=== PATIENT | female | born 1935 ===

== ENCOUNTER 2023-04-22 15:39 | Emergency (ER) | payer OTHER, SELFPAY ==
--- NOTE | 2023-04-22 15:45 | DI.RAD.S_ITS ---
PROCEDURE: XR CHEST 1V INDICATIONS: chest pain TECHNIQUE: One view of the chest was acquired. COMPARISON: None. FINDINGS: Surgical changes and devices: None. Lungs and pleura: Lungs are clear. No pleural effusions or pneumothorax. Mediastinum: Mediastinal contours appear normal. Heart size is normal. Bones and chest wall: No suspicious bony lesions. Overlying soft tissues appear unremarkable. IMPRESSION: No acute cardiopulmonary abnormality. Approved by: Naga Banks M.D. on 04/22/2023 at 16:35
[2023-04-22 15:48] VITALS: BP 157/68; PULSE 80; RESP 20; TEMP 36.6; O2SAT 100; BMI 22.4
[2023-04-22 16:19] LABS: D Dimer 1026 ng/ml (<500)
[2023-04-22 16:22] LABS: Alanine Aminotransferase 31 IU/L (<35); Albumin Globulin Ratio 1.3 (1.0-2.8); Alkaline Phosphatase 98 U/L (38-126); Aspartate Aminotransferase 33 IU/L (14-36); Bilirubin Total 0.6 mg/dL (0.2-1.3); Blood Urea Nitrogen 25 mg/dL (7-17); Calcium 9.3 mg/dL (8.4-10.2); Carbon Dioxide 26 mmol/L (22-32); Chloride 105 mmol/L (98-107); Creatine Kinase 38 U/L (30-135); Estimated Glomerular Filt Rate 42 mL/min (>60); Glucose 108 mg/dL (80-110); HEMOLYSIS < 15 (0-50); Lipase 222 U/L (23-300); Sodium 137 mmol/L (137-145)
--- NOTE | 2023-04-22 16:22 | DI.CT.S_ITS ---
PROCEDURE: CT ANGIO CHEST PE PROTOCOL INDICATIONS: R sided chest pain, pleuritic, SOB, travel, critical Dimer TECHNIQUE: After the administration of intravenous contrast, 2 mm thick sections acquired from the pulmonary apices to the posterior costophrenic angles. 3-dimensional maximum intensity projection (MIP) coronal and sagittal reformats were then acquired through the thorax. For radiation dose reduction, the following was used: automated exposure control, adjustment of mA and/or kV according to patient size. COMPARISON: None. FINDINGS: Image quality: Excellent. Pulmonary arteries: Pulmonary arteries are normal in size, and demonstrate no intraluminal filling defects to suggest central pulmonary embolism. Lungs and pleura: Lungs are clear. No pleural effusions or pneumothorax. Central and peripheral airways are patent. Mediastinum: Heart size is normal, without pericardial effusion. No mediastinal or hilar adenopathy. Thoracic aorta is normal in caliber and enhancement. Esophagus is normal in caliber, without hiatal hernia. Bones and chest wall: No suspicious bony lesions. Ribs and thoracic spine appear intact throughout. Thyroid gland is unremarkable. No axillary or supraclavicular adenopathy. Abdomen: Multiple low-attenuation foci within the spleen the largest measuring 9.2 cm. Hounsfield units are less than 20. Visualized upper abdominal solid organs appear normal in the early arterial phase of enhancement. IMPRESSION: No pulmonary embolism. Lungs are clear. Multiple simple hepatic cysts. Dictated by: Tonya Thompson M.D. on 04/22/2023 at 16:50 Approved by: Tonya Thompson M.D. on 04/22/2023 at 16:53
[2023-04-22 16:33] LABS: NT-proBNP (BNP-Adult 18+) 259 pg/mL (<450); Troponin I < 0.012 ng/mL (0.01-0.034)
[2023-04-22 16:39] LABS: Add Manual Diff / Slide Review NO; Basophils Absolute Auto 100 /uL (0-100); Basophils Percent Auto 1.2 % (0-2); Eosinophils Absolute Auto 400 /uL (0-450); Eosinophils Percent Auto 5.2 % (2-4); Hematocrit 34.6 % (36-46); Hemoglobin 11.9 g/dL (12.0-16.0); Lymphocytes Absolute Auto 1500 /uL (1100-4500); Lymphocytes Percent Auto 22.2 % (25-40); Mean Corpuscular HGB Conc 34.3 % (30-36); Mean Corpuscular Hemoglobin 28.8 PG (26-34); Monocytes Absolute Auto 800 /uL (0-900); Monocytes Percent Auto 12.1 % (3-14); Neutrophils Absolute Auto 4100 /uL (1500-7000); Neutrophils Percent Auto 59.3 % (50-75); Platelet Count 164 X10^3/uL (150-400); Red Blood Cell Count 4.12 X10^6/uL (4.0-5.2); Red Cell Distribution Width 14.2 % (11.6-14.8); White Blood Cell Count 6.8 X10^3/uL (4.5-11.0)
[2023-04-22] MEDS: ASPIRIN 81 MG CHEW TAB 324 MG PO (16:56)
[2023-04-22] MEDS: SODIUM CHLORIDE 0.9% 1,000 ML 150 ML IV (16:56)
--- NOTE | 2023-04-22 17:11 | PC.NURSE ---
patient states right sided chest/breast pain that if she is at rest does not feel pain, if she presses on the spot the pain returns. Denies nausea now.
[2023-04-22 17:12] VITALS: BP 151/67; PULSE 79; RESP 18; O2SAT 100
--- NOTE | 2023-04-22 17:13 | PC.NURSE ---
patient able to ambulate to the bathroom and back to bed. She states she does not feel dizzy with movement any more, and feels better overall. Denies chest pain at rest, but has reproducable chest pain on right upper chest/breast when palptated by patient.
[2023-04-22 18:09] VITALS: BP 162/86; PULSE 78; RESP 20; O2SAT 100
--- NOTE | 2023-04-22 18:19 | ED.CHESTPAIN ---
HPI - Chest Pain General Chief Complaint: Chest Pain Stated Complaint: Chest Pain/+Orthostatic Time Seen by Provider: 04/22/23 15:45 Source: patient Mode of arrival: EMS Limitations: no limitations History of Present Illness HPI narrative: 87-year-old female nonsmoker with history of stroke with no residual symptoms presents by EMS for evaluation of the evolution of a sharp and stabbing right-sided chest pain over the course of the day. She states this pain is worse with motion, deep breaths and with palpation as well as use of her right arm. She states that she has some lightheadedness and upon arrival EMS found her to be symptomatically orthostatic. She had an episode or 2 of nausea and vomiting earlier today but feels much better now. She denies any shortness of breath or cough. She denies any significant fatigue or weakness. She denies any change in medications or diet. She denies exertional symptoms or exercise intolerance. Review of Systems Review of Systems Narrative: GENERAL: See HPI HEENT: Denies sinus pain, ear pain, sore throat, difficulty swallowing, dizziness. RESPIRATORY: Denies dyspnea, cough, wheezing, hemoptysis, sputum. CARDIOVASCULAR: See HPI GASTROINTESTINAL: See HPI : Denies dysuria, frequency, incontinence, hematuria, urinary retention. MUSCULOSKELETAL: denies weakness, joint pain, or bony pain SKIN: Denies rash, skin lesions, or other NEUROLOGIC: See HPI PSYCHIATRIC: No concerning psychosocial issues. 12 point review of systems is negative except for those stated above Patient History Social History Smoking Status: Never smoker Smoking Status: Never smoker alcohol intake frequency: holidays/special occasions only Substance Use Type: does not use Exam Narrative Exam Narrative: GENERAL: [87] year old patient appears stated age. Well-developed patient, in mild distress. GCS 15 HEAD: Atraumatic. Normocephalic. EYES: Pupils equal round and reactive. Extraocular motions intact. No scleral icterus. No injection or drainage. ENT: Nose without bleeding, purulent drainage. Throat without erythema, tonsillar hypertrophy or exudate. Airway patent. NECK: Trachea midline. Non tender CARDIOVASCULAR: Regular rate and rhythm without murmurs, gallops, or rubs. Right-sided chest pain reproducible on palpation, she confirms that this is the same pain that was bothering her RESPIRATORY: Clear to auscultation. Breath sounds equal bilaterally. No wheezes, rales, or rhonchi. GASTROINTESTINAL: Abdomen soft, non-tender, nondistended. EXTREMITIES: No edema or joint tenderness. BACK: Nontender without deformity or crepitance. No flank tenderness. NEURO: AOx3. SKIN: No rash or erythema of visible areas Initial Vital Signs Initial Vital Signs: Vital Signs Temperature 97.9 F 04/22/23 15:48 Pulse Rate 80 04/22/23 15:48 Respiratory Rate 20 04/22/23 15:48 Blood Pressure 157/68 H 04/22/23 15:48 Pulse Oximetry 100 04/22/23 15:48 Oxygen Delivery Method Room Air 04/22/23 15:48 Course Orders Ordered: Discontinued Medications Aspirin (Aspirin 81 Mg Chew Tab) 324 mg PO NOW ONE Stop: 04/22/23 15:46 Last Admin: 04/22/23 16:56 Dose: 243 mg Documented By: SPF Sodium Chloride (Normal Saline 0.9%) 1,000 mls @ 150 mls/hr IV CONT TANIA Last Admin: 04/22/23 16:56 Dose: 150 mls/hr Documented By: SPF Reevaluation(s) Reevaluation #1: Patient no longer feeling dizzy, feels significant improvement after fluids Vital Signs Vital signs: Vital Signs - 8 hr 04/22/23 15:48 04/22/23 17:12 04/22/23 18:09 Temperature 97.9 F Pulse Rate 80 79 78 Respiratory Rate 20 18 20 Blood Pressure 157/68 H 151/67 H 162/86 H Pulse Oximetry 100 100 100 Oxygen Delivery Method Room Air Room Air MDM - Chest Pain Lab Data 04/22/23 16:06 04/22/23 18:55 Labs: Lab Results 04/22/23 04/22/23 04/22/23 Range/Units 16:06 16:06 16:06 WBC 6.8 (4.5-11.0) X10^3/uL RBC 4.12 (4.0-5.2) X10^6/uL Hgb 11.9 L (12.0-16.0) g/dL Hct 34.6 L (36-46) % MCV 84.0 (80-100) fL MCH 28.8 (26-34) PG MCHC 34.3 (30-36) % RDW 14.2 (11.6-14.8) % Plt Count 164 (150-400) X10^3/uL Neut % (Auto) 59.3 (50-75) % Lymph % (Auto) 22.2 L (25-40) % [place] % (Auto) 12.1 (3-14) % Eos % (Auto) 5.2 H (2-4) % Baso % (Auto) 1.2 (0-2) % Neut # (Auto) 4100 (9338-4865) /uL Lymph # (Auto) 1500 (5487-6912) /uL [place] # (Auto) 800 (0-900) /uL Eos # (Auto) 400 (0-450) /uL Baso # (Auto) 100 (0-100) /uL D-Dimer 1026 H (<500) ng/ml Sodium 137 (137-145) mmol/L Potassium 4.0 (3.4-5.1) mmol/L Chloride 105 (98-107) mmol/L Carbon Dioxide 26 (22-32) mmol/L BUN 25 H (7-17) mg/dL Creatinine 1.25 H (0.52-1.04) mg/dL Estimated GFR 42 L (>60) mL/min BUN/Creatinine Ratio 20.0 (6-22) Glucose 108 (80-110) mg/dL Calcium 9.3 (8.4-10.2) mg/dL Total Bilirubin 0.6 (0.2-1.3) mg/dL AST 33 (14-36) IU/L ALT 31 (<35) IU/L Alkaline Phosphatase 98 (38-126) U/L Total Creatine Kinase 38 (30-135) U/L Troponin I < 0.012 (0.01-0.034) ng/mL NT-Pro-B Natriuret Pep 259 (<450) pg/mL Total Protein 7.0 (6.3-8.2) g/dL Albumin 4.0 (3.5-5.0) g/dL Globulin 3.0 (1.7-4.1) g/dL Albumin/Globulin Ratio 1.3 (1.0-2.8) Lipase 222 (23-300) U/L 04/22/23 Range/Units 18:55 WBC (4.5-11.0) X10^3/uL RBC (4.0-5.2) X10^6/uL Hgb (12.0-16.0) g/dL Hct (36-46) % MCV (80-100) fL MCH (26-34) PG MCHC (30-36) % RDW (11.6-14.8) % Plt Count (150-400) X10^3/uL Neut % (Auto) (50-75) % Lymph % (Auto) (25-40) % [place] % (Auto) (3-14) % Eos % (Auto) (2-4) % Baso % (Auto) (0-2) % Neut # (Auto) (0522-2130) /uL Lymph # (Auto) (7959-5810) /uL [place] # (Auto) (0-900) /uL Eos # (Auto) (0-450) /uL Baso # (Auto) (0-100) /uL D-Dimer (<500) ng/ml Sodium 140 (137-145) mmol/L Potassium 4.2 (3.4-5.1) mmol/L Chloride 108 H (98-107) mmol/L Carbon Dioxide 25 (22-32) mmol/L BUN 22 H (7-17) mg/dL Creatinine 1.14 H (0.52-1.04) mg/dL Estimated GFR 47 L (>60) mL/min BUN/Creatinine Ratio 19.3 (6-22) Glucose 125 H (80-110) mg/dL Calcium 8.6 (8.4-10.2) mg/dL Total Bilirubin (0.2-1.3) mg/dL AST (14-36) IU/L ALT (<35) IU/L Alkaline Phosphatase (38-126) U/L Total Creatine Kinase 29 L (30-135) U/L Troponin I < 0.012 (0.01-0.034) ng/mL NT-Pro-B Natriuret Pep (<450) pg/mL Total Protein (6.3-8.2) g/dL Albumin (3.5-5.0) g/dL Globulin (1.7-4.1) g/dL Albumin/Globulin Ratio (1.0-2.8) Lipase (23-300) U/L Urine Dip Bedside Urine Glucose Negative Bedside Urine Bilirubin - Negative Bedside Urine Ketone - Negative Urine Specific [place] 1.010 Bedside Urine Occult Blood + Bedside Urine pH 6.5 Bedside Urine Protein - Negative Bedside Urine Urobilinogen - Negative Bedside Urine Nitrite - Negative Bedside Urine Leukocytes - Negative Esterase MDM Narrative Medical decision making narrative: CC: 87-year-old female with right-sided chest pain Complicating co-morbidities: Each, prior stroke Data collected from: Patient Medical records reviewed: Prior notes reviewed in our EMR Differential considered, but not limited to: cardiac ischemia versus pulmonary embolism versus musculoskeletal versus inflammatory change versus much less likely stroke versus other Exam documented above, pertinent findings include: Reproducible right-sided chest pain, heart rate regular, lungs clear, no focal neuro findings Lab Test results independently reviewed as above. Pertinent findings: No leukocytosis or left shift, no anemia, platelets 1 6 4, DDimer 1026, primary electrolytes within normal limits, creatinine 1.25, troponin less than 0.012 Independently reviewed EKG as above Imaging studies independently reviewed: Chest x-ray without acute cardiopulmonary abnormality, CT angiogram of chest demonstrates no evidence of pulmonary embolism, clear lungs and multiple simple hepatic cysts Scores Used: NIHSS Treatments: fluids, ASA Re-evaluations: Patient feels much better after fluids, no longer orthostatic Discussion: Patient with a sharp and stabbing right-sided chest pain this started earlier today. Multiple diagnoses considered as noted above. Cardiac ischemia considered but thought unlikely given negative troponin, nonocclusive EKG, sharp and stabbing reproducible pain without radiation or exertional symptoms. Stroke considered given her history, however thought unlikely given lack of focal findings, dizziness resolved with fluids, no findings on NIH stroke scale. No persistent ataxia or dizziness. Pulmonary embolism considered but thought unlikely given lack of findings on CT angiogram. No evidence IA, pneumonia, PE, or other specific cause of chest pain requiring immediate intervention Disposition: see below, along with detailed discharge instructions that have been reviewed with patient as well as indications for ED re-evaluation and additional outpatient follow up Discharge Plan Departure Patient Disposition: Home Clinical Impression: Atypical chest pain, Acute dehydration Instructions: DI for Atypical Chest Pain Activity Restrictions/Additional Instructions: *You have been diagnosed with [atypical chest pain and dehydration. As we discussed your history and physical exam are reassuring. Your labs, CT scans, and EKGs are also very reassuring and there is no evidence of heart attack, blood clot or stroke.] *What to do: *Please continue to take your regular medications as directed. [ ] New medication prescriptions sent to your pharmacy: [ ] [ ] New medication written as a paper prescription [ ] No new medications given *Please follow up with your primary care provider in 2-3 days, call for an appointment. Let them know you were seen in the Emergency Department and that we ask that you be seen in follow up. We will electronically transmit a record of today's note if your PCP is in our system *If you do not have a primary care provider please contact the [facility] Resource line at [phone]. They will ask some questions about your medical history and help get you set up with a doctor in the community. *Return to Emergency Department if you should have any new, worsening or concerning symptoms, such as [fever greater than 101 F, shaking chills, worsening pain, persistent vomiting or other bothersome symptoms] Stand Alone Forms: Patient Portal/API
--- NOTE | 2023-04-22 18:33 | DI.CT.S_ITS ---
PROCEDURE: CT HEAD/BRAIN WO CON INDICATIONS: Dizzy, headache, history of stroke. TECHNIQUE: Noncontrast 4.5 mm thick angled axial sections acquired from the foramen magnum to the vertex, with coronal and sagittal reformats. For radiation dose reduction, the following was used: automated exposure control, adjustment of mA and/or kV according to patient size. COMPARISON: None. FINDINGS: Image quality: Excellent. CSF spaces: Basal cisterns are patent. No definite extra-axial fluid collections. Prominent subdural spaces. Ventricles are normal in size and shape. Brain: No midline shift. No intracranial masses or hemorrhage. No area of hypodensity in a large vascular distribution to suggest acute infarction. Periventricular hypodensity consistent with chronic microvascular ischemic change. Age-related parenchymal loss. Skull and face: Calvarium and visualized facial bones are intact, without suspicious lesions. Sinuses: Visualized sinuses and mastoids are clear. IMPRESSION: No acute intracranial abnormality identified. Chronic microvascular ischemic disease. Dictated by: Devonte Sequeira M.D. on 04/22/2023 at 18:59 Approved by: Devonte Sequeira M.D. on 04/22/2023 at 19:02
[2023-04-22 19:47] LABS: BUN Creatinine Ratio 19.3 (6-22); Blood Urea Nitrogen 22 mg/dL (7-17); Calcium 8.6 mg/dL (8.4-10.2); Carbon Dioxide 25 mmol/L (22-32); Chloride 108 mmol/L (98-107); Creatine Kinase 29 U/L (30-135); Estimated Glomerular Filt Rate 47 mL/min (>60); Glucose 125 mg/dL (80-110); HEMOLYSIS < 15 (0-50); Potassium 4.2 mmol/L (3.4-5.1); Sodium 140 mmol/L (137-145)
[2023-04-22 19:59] LABS: Troponin I < 0.012 ng/mL (0.01-0.034)
[2023-04-22 20:07] VITALS: BP 144/69; BP 179/76; PULSE 79; PULSE 85
[2023-04-22 20:34] VITALS: BP 134/84; PULSE 70; RESP 17; O2SAT 96
== END 2023-04-22 20:34 | disposition home or self-care (01) ==
PROVIDERS: Emergency Provider Emergency Medicine
DX: R07.89 Other chest pain (principal); E86.0 Dehydration
CPT/HCPCS: 36415; 70450; 71045; 71275; 80048; 80053; 81003; 82550; 83690; 83880; 84484; 85025; 85379; 93005; 99284; Q9967